=== PATIENT | male | born 1980 | race Asian ===

== ENCOUNTER 2018-08-22 16:16 | Emergency (ER) | payer OTHER ==
[2018-08-22] MEDS ORDERED: CEFTRIAXONE SODIUM 500 MG VIAL ONE (16:46)
[2018-08-22] MEDS ORDERED: LIDOCAINE HCL-MPF 1% 2ML VIAL ONE (16:46)
== END 2018-08-22 16:53 | disposition home or self-care (01) ==
LOC: EDH 16:16
DX: Z20.811 Contact with and (suspected) exposure to meningococcus (principal)
CPT/HCPCS: 96372; 99283; J0696; J3490